=== PATIENT | male | born 1955 | race Caucasian/White ===

== ENCOUNTER 2024-02-27 08:57 | Day surgery (SDC) | payer BC, MEDICARE ==
[~2024-02-27] VITALS: Ht 190.5 cm; Wt 107.5 kg
[2024-02-27] MEDS: CEFUROXIME 1MG/0.1ML INTRACAMERAL INJ As Ordered ONE (06:58)
[~2024-02-27 08:57] MED LIST: MIDAZOLAM INJ 2MG/2ML VIAL As Ordered ONE; MONT10TA97 PO; OMEGCAP4 PO; OMEP40CA5 PO; PHENYLEPHRINE 10% OPHTH SOL 5ML OS PRN; PROBCAP14 PO; SYMB80INH INH; VITA-243 PO; fentaNYL 100 MCG/2 ML INJECTION As Ordered ONE
[2024-02-27] MEDS: LIDOCAINE 3.5 % 1ML OPHTH TOPICAL GEL OU ONE (10:10)
[2024-02-27] MEDS: OFLOXACIN 0.3 % (OCUFLOX) OPTH SOL 5ML OS ONE (10:11)
[2024-02-27] MEDS: TROPICAMIDE 1% OPHTH SOLN 15ML OS SCH (10:11)
[2024-02-27] MEDS: PHENYLEPHRINE 2.5% OPHTH SOL 2ML OS SCH (10:11)
[2024-02-27] MEDS: ATROPINE SULFATE 1% OPHTH SOLN 2ML BTL OS SCH (10:11)
[2024-02-27] MEDS: BSS IRRIG/VANCO(10MG)/TOBRA(5MG)/EPINEPH(1:1000-0.5CC)500ML BAG-ORONLY As Ordered ONE (10:49)
[2024-02-27] MEDS: LIDOCAINE 1% SDV 5ML VIAL As Ordered ONE (10:49)
[2024-02-27 10:58] VITALS: BP 170/92; TEMP 97.1; O2SAT 97
== END 2024-02-27 11:20 | disposition home or self-care (01) ==
LOC: M SDC 08:57
PROVIDERS: ATTEND Ophthalmology
DX: H25.12 Age-related nuclear cataract, left eye (principal); J45.909 Unspecified asthma, uncomplicated; G47.30 Sleep apnea, unspecified; K21.9 Gastro-esophageal reflux disease without esophagitis; Z79.899 Other long term (current) drug therapy; Z79.51 Long term (current) use of inhaled steroids; Z87.19 Personal history of other diseases of the digestive system
CPT/HCPCS: 66984; J0697; J2250; J3010; V2632

== ENCOUNTER 2024-03-12 07:36 | Day surgery (SDC) | payer BC, MEDICARE ==
[~2024-03-12] VITALS: Ht 190.5 cm; Wt 108.0 kg
[2024-03-12] MEDS: BSS IRRIG/VANCO(10MG)/TOBRA(5MG)/EPINEPH(1:1000-0.5CC)500ML BAG-ORONLY As Ordered ONE (07:00)
[~2024-03-12 07:36] MED LIST changes: -MIDAZOLAM INJ 2MG/2ML VIAL As Ordered ONE; +PHENYLEPHRINE 10% OPHTH SOL 5ML OD PRN; -PHENYLEPHRINE 10% OPHTH SOL 5ML OS PRN; -fentaNYL 100 MCG/2 ML INJECTION As Ordered ONE
[2024-03-12] MEDS: LIDOCAINE 3.5 % 1ML OPHTH TOPICAL GEL OU ONE (08:10)
[2024-03-12] MEDS: OFLOXACIN 0.3 % (OCUFLOX) OPTH SOL 5ML OD ONE (08:10)
[2024-03-12] MEDS: ATROPINE SULFATE 1% OPHTH SOLN 2ML BTL OD SCH (08:11)
[2024-03-12] MEDS: TROPICAMIDE 1% OPHTH SOLN 15ML OD SCH (08:11)
[2024-03-12] MEDS: PHENYLEPHRINE 2.5% OPHTH SOL 2ML OD SCH (08:11)
[2024-03-12] MEDS ORDERED: fentaNYL 100 MCG/2 ML INJECTION As Ordered ONE (08:50)
[2024-03-12] MEDS ORDERED: MIDAZOLAM INJ 2MG/2ML VIAL As Ordered ONE (08:50)
[2024-03-12] MEDS: CEFUROXIME 1MG/0.1ML INTRACAMERAL INJ As Ordered ONE (09:00)
[2024-03-12] MEDS: LIDOCAINE 1% SDV 5ML VIAL As Ordered ONE (09:00)
[2024-03-12 09:15] VITALS: BP 130/70; TEMP 97.6; O2SAT 95
== END 2024-03-12 09:26 | disposition home or self-care (01) ==
LOC: M SDC 07:36
PROVIDERS: ATTEND Ophthalmology
DX: H25.11 Age-related nuclear cataract, right eye (principal); J45.909 Unspecified asthma, uncomplicated; K21.9 Gastro-esophageal reflux disease without esophagitis; Z79.899 Other long term (current) drug therapy
CPT/HCPCS: 66984; J0697; J2250; J3010; V2632